=== PATIENT | female | born 1955 | race Caucasian/White ===

== ENCOUNTER → 2017-06-07 | Day surgery (SDC) | payer MEDICARE, BC ==
[~2017-06-07] MED LIST: ACCUPRIL PO; ALPRAZOLAM PO; ALPRAZOLAM1 MG PO; BACTRIM DS TABL1 TA1 PO; CRESTOR PO; CRESTOR10 MG PO; FARXIGA10 MG PO; FISH OIL 1,001000 M2 PO; FLOVENT DISKU100 MCG INH; IBUPROFEN800 MG PO; KEFLEX PO; LORTAB 10/500 T1 TAB PO; LORTAB 7.5-5001 TAB PO; METFORMIN HCL500 M1 PO; NEXIUM PO; NIASPAN PO; OCUVITE LUTEIN1 EAC1 PO; OMEPRAZOLE20 M2 PO; PERCOCET 10/3251 TAB PO; PROMETHAZINE HC25 MG PO; QUINAPRIL HCTZ PO; SINGULAIR PO; ZYRTEC10 M1 PO
--- NOTE | ~2017-06-07 | OR ---
Unit #: [id number] #: [id number] Patient: KRUPA LORENOZ [id number] [address] [place], [place] [address] [id number] O MR#: [id number] NAME: KRUPA LORENZO ROOM: Date of Procedure: 06/07/2017 Admission Date: 06/07/2017 Surgeon: Dion Finley M.D. : 1955 Attending Physician: Dion Finley M.D. Referring Physician: Dion Finley M.D. Primary Care Physician: Stanley Campo M.D. OPERATIVE REPORT PREOPERATIVE DIAGNOSES Degenerative disk and spine disease, back pain, radiculopathy. POSTOPERATIVE DIAGNOSES Degenerative disk and spine disease, back pain, radiculopathy. PROCEDURE PERFORMED Lumbar epidural steroid injection with intravenous sedation and fluoroscopic guidance for needle localization. INDICATIONS FOR PROCEDURE The patient is a 62-year-old female with return of back and bilateral lower extremity pain, left not as bad as right due to multilevel multifactorial degenerative disk and spine disease from L1-S1. She is a poor surgical candidate due to the extensive nature of her spinal disease and morbid obesity. She is managed medically with p.r.n. epidural steroid injections. Last injections were completed about 7 months ago. She did well for 4 to 5 months. Plan is to repeat injection at this point based on history, pathology, symptomatology, response to treatment. DESCRIPTION OF PROCEDURE The patient was placed in a seated position. Standard monitors were applied. 4 mg of Versed were given for sedation and anxiolysis, which were adequate. Vital signs remained stable. Sterile prep and drape then of the lumbar area was performed. The skin then at the L3-L4 level was localized with 1% lidocaine to the right of midline. An 18-gauge OutTrippinte[employer] needle was advanced via right paramedian approach and loss of resistance technique in toward the epidural space. After confirming proper positioning with fluoroscopy and radiographic contrast, 80 mg of Depo-Medrol and 6 mL of 0.125% bupivacaine were deposited. The patient tolerated the procedure otherwise well and was discharged to the recovery room in stable condition. Dictated by... Vanna Turner/sammy TD: 06/07/2017 15:11 JOB #: [id number] Unit #: [id number] #: [id number] Patient: KRUPA LORENZO OPERATIVE REPORT Page 1 of 1 X Dion Finley MD X PROCEDURE OPERATIVE NOTE
== END | disposition home or self-care (01) ==
LOC: CCSC 09:34
DX: M51.17 Intervertebral disc disorders with radiculopathy, lumbosacral region (principal); E66.01 Morbid (severe) obesity due to excess calories; E11.9 Type 2 diabetes mellitus without complications; I10 Essential (primary) hypertension; J45.909 Unspecified asthma, uncomplicated; K21.9 Gastro-esophageal reflux disease without esophagitis; F41.9 Anxiety disorder, unspecified; F32.9 Major depressive disorder, single episode, unspecified; Z79.84 Long term (current) use of oral hypoglycemic drugs; Z79.891 Long term (current) use of opiate analgesic; Z79.899 Other long term (current) drug therapy
CPT/HCPCS: J1040; J2250

== ENCOUNTER → 2017-06-14 | Day surgery (SDC) | payer MEDICARE, BC ==
--- NOTE | ~2017-06-14 | OR ---
Unit #: [id number] #: [id number] Patient: KRUPA LORENZO [id number] [address] [address] [id number] O MR#: [id number] NAME: KRUPA LORENZO ROOM: Date of Procedure: 06/14/2017 Admission Date: 06/14/2017 Surgeon: Dion Finley M.D. : 1955 Attending Physician: Dion Finley M.D. Primary Care Physician: Stanley Campo M.D. OPERATIVE REPORT PREOPERATIVE DIAGNOSES Back pain, radiculopathy, degenerative lumbar disk disease, lumbar facet disease. POSTOPERATIVE DIAGNOSES Back pain, radiculopathy, degenerative lumbar disk disease, lumbar facet disease. PROCEDURE PERFORMED Lumbar epidural steroid injection with intravenous sedation and fluoroscopic guidance for needle localization. INDICATIONS FOR PROCEDURE The patient is a 62-year-old female, who presented with significant back and right greater than left lower extremity pain due to multilevel multifactorial nonsurgical degenerative disk and spine disease. The patient is treated medically with p.r.n. epidural steroid injections. She has done well with last injections for almost 5 months. She has severe return of the pain over a month or two prior to her repeat injection last week, which resulted in substantial improvement in her leg pain, but is not helped her back quite as much as her legs. Typically, takes the second injection helped the back pain more significantly. Based on her history, pathology, and symptomatology, we are going to proceed with a second injection today. DESCRIPTION OF PROCEDURE The patient was placed in a seated position. Standard monitors were applied. 4 mg of Versed were given for sedation and anxiolysis, which were adequate. Vital signs remained stable. Sterile prep and drape then of the lumbar area was performed. The skin then to the right of midline at the L4 level was localized with 1% lidocaine. An 18-gauge Hustead needle was then advanced via right paramedian approach and loss of resistance technique in toward the epidural space. After confirming proper positioning with fluoroscopy and radiographic contrast, 80 mg of Depo-Medrol and 4 mL of 0.125% bupivacaine were deposited. The patient tolerated the procedure otherwise well and was discharged to recovery room in stable condition. Dictated by... Dion Finley M.D. Unit #: [id number] #: [id number] Patient: KRUPA LORENZO LHP/modl TD: 06/14/2017 15:34 JOB #: [id number] OPERATIVE REPORT Page 1 of 1 X Dion Finley MD X PROCEDURE OPERATIVE NOTE
== END | disposition home or self-care (01) ==
LOC: CCSC 09:38
DX: M51.16 Intervertebral disc disorders with radiculopathy, lumbar region (principal); M53.86 Other specified dorsopathies, lumbar region; E11.9 Type 2 diabetes mellitus without complications; E66.01 Morbid (severe) obesity due to excess calories; I10 Essential (primary) hypertension; J45.909 Unspecified asthma, uncomplicated; K21.9 Gastro-esophageal reflux disease without esophagitis; F41.9 Anxiety disorder, unspecified; F32.9 Major depressive disorder, single episode, unspecified; Z79.84 Long term (current) use of oral hypoglycemic drugs; Z79.891 Long term (current) use of opiate analgesic
CPT/HCPCS: J1040; J2250

== ENCOUNTER → 2017-06-21 | Day surgery (SDC) | payer MEDICARE, BC ==
--- NOTE | ~2017-06-21 | OR ---
Unit #: [id number] #: [id number] Patient: KRUPA LORENZO [id number] [address] [place], [place] [address] [id number] O MR#: [id number] NAME: KRUPA LORENZO ROOM: Date of Procedure: 06/21/2017 Admission Date: 06/21/2017 Surgeon: Dion Finley M.D. : 1955 Attending Physician: Dion Finley M.D. Primary Care Physician: Stanley Campo M.D. OPERATIVE REPORT PREOPERATIVE DIAGNOSES Back pain, radiculopathy, degenerative lumbar disk disease. POSTOPERATIVE DIAGNOSES Back pain, radiculopathy, degenerative lumbar disk disease. PROCEDURE PERFORMED Lumbar epidural steroid injection with intravenous sedation and fluoroscopic guidance for needle localization. INDICATIONS FOR PROCEDURE The patient is a 62-year-old female, who presented with return of back and right greater than left lower extremity pain. She has multilevel severe degenerative disk and facet disease. She is not a good surgical candidate. She treated medically with epidural steroids. Two injections done over the last several weeks. They have given additive significant improvement of her leg pains and moderately good improvement of back pain. Based on history, pathology, symptomatology, response to treatment, and treatment options available, we are going to proceed with a final injection today. DESCRIPTION OF PROCEDURE The patient was placed in a seated position. Standard monitors were applied. 4 mg of Versed were given for sedation and anxiolysis, which were adequate. Vital signs remained stable. Sterile prep and drape then of lumbar area was performed. The skin then to the right of midline at the L4 level was localized with 1% lidocaine. An 18-gauge H[employer] Technolog[employer]ead needle was then advanced via right paramedian approach and loss of resistance technique in toward the epidural space. The patient did not complain of pain or paresthesia during needle advancement. After confirming proper positioning, a dose of 80 mg of Depo-Medrol and 6 mL of preservative-free normal saline were deposited. The patient tolerated the procedure otherwise well and was discharged to the recovery room in stable condition. Dictated by... Dion Finley M.D. LHP/modl Unit #: [id number] #: [id number] Patient: KRUPA LORENZO TD: 06/21/2017 12:31 JOB #: [id number] OPERATIVE REPORT Page 1 of 1 X Dion Finley MD X PROCEDURE OPERATIVE NOTE
== END | disposition home or self-care (01) ==
LOC: CCSC 09:38
DX: M51.16 Intervertebral disc disorders with radiculopathy, lumbar region (principal); E11.9 Type 2 diabetes mellitus without complications; E66.01 Morbid (severe) obesity due to excess calories; I10 Essential (primary) hypertension; K21.9 Gastro-esophageal reflux disease without esophagitis; J45.909 Unspecified asthma, uncomplicated; M19.90 Unspecified osteoarthritis, unspecified site; Z79.84 Long term (current) use of oral hypoglycemic drugs; Z79.899 Other long term (current) drug therapy
CPT/HCPCS: J1040; J2250